=== PATIENT | female | born 1980 | race Caucasian/White ===

== ENCOUNTER 2021-04-04 11:30 | Inpatient (IN) ==
[2021-04-04] MEDS ORDERED: SODIUM CHLORIDE 0.9% 1,000 ML IV STA ×2 (13:11→15:27)
[2021-04-04] MEDS ORDERED: HYDROmorphone 2 MG/1 ML VIAL IV STA (13:31)
[2021-04-04] MEDS ORDERED: ONDANSETRON 4 MG/2 ML VIAL IV STA (13:31)
[2021-04-04 13:36] LABS: Basophils # 0.1 10*3/uL (0.0-0.2); Basophils % 0.4 % (0.0-0.8); Eosinophils % 0.2 % (0.00-10.9); Hematocrit 42.9 VOL% (35.7-47.0); Hemoglobin 14.4 GM/DL (12.0-16.0); Immature Granulocytes % 0.3 %; Immature Granulocytes Absolute 0.04 #; Lymphocytes # 0.8 10*3/uL (1.4-4.0); Lymphocytes % 6.1 % (21.3-54.2); Mean Corpuscular HGB Conc 33.6 GM/DL (32-36); Mean Corpuscular Volume 97.9 FL (87-102); Mean Platelet Volume 9.9 FL (9.6-12.0); Monocytes % 6.3 % (1.7-12.7); Neutrophils % 86.7 % (38.7-73.9); Platelet Count 285 T/CUMM (130-400); Red Blood Count 4.38 MC/CUMM (3.8-5.5); Red Cell Distribution Width 12.8 % (9.3-17.3)
[2021-04-04 13:53] LABS: Albumin 4.1 G/DL (3.4-5.0); Bilirubin,Total 0.8 MG/DL (0.2-1.0); Calcium 8.8 MG/DL (8.5-10.1); Potassium 3.4 MMOL/L (3.5-5.1); Total Protein 7.6 G/DL (6.4-8.2)
[2021-04-04] MEDS ORDERED: LEVOFLOXACIN INJ 500 MG/100 ML PREMIX IV STA (15:27)
[2021-04-04] MEDS ORDERED: GLUCAGON 1 MG VIAL IM PRN (15:54)
[2021-04-04] MEDS ORDERED: DEXTROSE 50% 25 GM/50 ML VIAL IV PRN (15:54)
[2021-04-04] MEDS: SODIUM CHLORIDE 0.9% 1,000 ML IV SCH (17:55)
[2021-04-04] MEDS: metroNIDAZOLE INJ 500 MG/100 ML PREMIX IV SCH ×2 (17:55→22:51)
[2021-04-04] MEDS: HYDROmorphone 2 MG/1 ML VIAL IV PRN ×2 (18:03→21:48)
[2021-04-05] MEDS: HYDROmorphone 2 MG/1 ML VIAL IV PRN (03:33)
[2021-04-05 05:21] LABS: Basophils % 0.2 % (0.0-0.8); Eosinophils # 0.1 10*3/uL (0.0-0.87); Eosinophils % 1.2 % (0.00-10.9); Hematocrit 38.3 VOL% (35.7-47.0); Hemoglobin 12.7 GM/DL (12.0-16.0); Immature Granulocytes % 0.6 %; Immature Granulocytes Absolute 0.06 #; Lymphocytes # 1.1 10*3/uL (1.4-4.0); Lymphocytes % 11.5 % (21.3-54.2); Mean Corpuscular HGB Conc 33.2 GM/DL (32-36); Mean Corpuscular Volume 99.7 FL (87-102); Mean Platelet Volume 10.1 FL (9.6-12.0); Monocytes % 7.5 % (1.7-12.7); Platelet Count 230 T/CUMM (130-400); Red Blood Count 3.84 MC/CUMM (3.8-5.5); Red Cell Distribution Width 12.9 % (9.3-17.3); White Blood Count 9.3 T/CUMM (4-12)
[2021-04-05 05:40] LABS: Albumin 3.3 G/DL (3.4-5.0); Bilirubin,Total 1.4 MG/DL (0.2-1.0); Calcium 7.5 MG/DL (8.5-10.1); Osmolality,Calculated 273.5 MOS/KG (273-304); Potassium 3.3 MMOL/L (3.5-5.1); Total Protein 6.1 G/DL (6.4-8.2)
[2021-04-05] MEDS: SODIUM CHLORIDE 0.9% 1,000 ML IV SCH ×2 (05:59→22:28)
[2021-04-05] MEDS: metroNIDAZOLE INJ 500 MG/100 ML PREMIX IV SCH ×4 (05:59→22:29)
[2021-04-05] MEDS ORDERED: POTASSIUM CHLORIDE 20 MEQ TABLET PO PRN (08:26)
[2021-04-05] MEDS ORDERED: NICOTINE 21 MG/24 HR PATCH TRANSDERM PRN (08:35)
[2021-04-05 09:11] LABS: PT Patient Result 11.1 SECS (10.5-12.0)
[2021-04-05] MEDS: MULTIVITAMIN (BEROCCA) TABLET PO SCH (09:33)
[2021-04-05] MEDS: LISDEXAMFETAMINE 50 MG PO SCH (09:33)
[2021-04-05] MEDS: chlordiazePOXIDE 10 MG CAPSULE PO SCH ×3 (09:33→20:23)
[2021-04-05] MEDS: FOLIC ACID 1 MG TABLET PO SCH (09:33)
[2021-04-05] MEDS: THIAMINE 100 MG TABLET PO SCH (09:33)
[2021-04-05 12:18] LABS: Hematocrit 35.9 VOL% (35.7-47.0)
[2021-04-05] MEDS: LEVOFLOXACIN INJ 500 MG/100 ML PREMIX IV SCH (16:15)
[2021-04-06] MEDS: metroNIDAZOLE INJ 500 MG/100 ML PREMIX IV SCH ×4 (05:14→23:20)
[2021-04-06 05:26] LABS: Basophils # 0.1 10*3/uL (0.0-0.2); Basophils % 0.8 % (0.0-0.8); Eosinophils # 0.3 10*3/uL (0.0-0.87); Eosinophils % 4.4 % (0.00-10.9); Hematocrit 33.1 VOL% (35.7-47.0); Hemoglobin 10.8 GM/DL (12.0-16.0); Immature Granulocytes % 0.3 %; Immature Granulocytes Absolute 0.02 #; Lymphocytes # 1.4 10*3/uL (1.4-4.0); Lymphocytes % 21.3 % (21.3-54.2); Mean Corpuscular HGB Conc 32.6 GM/DL (32-36); Mean Corpuscular Volume 100.9 FL (87-102); Monocytes % 6.4 % (1.7-12.7); Neutrophils % 66.8 % (38.7-73.9); Platelet Count 192 T/CUMM (130-400); Red Blood Count 3.28 MC/CUMM (3.8-5.5); Red Cell Distribution Width 12.8 % (9.3-17.3); White Blood Count 6.5 T/CUMM (4-12)
[2021-04-06 05:50] LABS: Calcium 7.3 MG/DL (8.5-10.1); Potassium 3.2 MMOL/L (3.5-5.1)
[2021-04-06] MEDS: POTASSIUM CHLORIDE 20 MEQ TABLET PO PRN ×3 (06:49→17:16)
[2021-04-06] MEDS: MULTIVITAMIN (BEROCCA) TABLET PO SCH (09:16)
[2021-04-06] MEDS: BISACODYL 5 MG TABLET PO SCH ×3 (09:16→23:21)
[2021-04-06] MEDS: FOLIC ACID 1 MG TABLET PO SCH (09:17)
[2021-04-06] MEDS: LISDEXAMFETAMINE 50 MG PO SCH (09:17)
[2021-04-06] MEDS: chlordiazePOXIDE 10 MG CAPSULE PO SCH ×3 (09:17→20:22)
[2021-04-06] MEDS: THIAMINE 100 MG TABLET PO SCH (09:17)
[2021-04-06] MEDS: ONDANSETRON 4 MG/2 ML VIAL IV PRN ×2 (11:32→20:24)
[2021-04-06] MEDS: SODIUM CHLORIDE 0.9% 1,000 ML IV SCH (13:09)
[2021-04-06] MEDS: LEVOFLOXACIN INJ 500 MG/100 ML PREMIX IV SCH (16:14)
[2021-04-06] MEDS ORDERED: POLYETHYLENE GLYCOL POWDER 255 GM BOTTLE PO ONE (18:00)
[2021-04-06] MEDS: POTASSIUM CHLORIDE RIDER 10 MEQ/100 ML PREMIX IV SCH (19:20)
[2021-04-06] MEDS ORDERED: MAGNESIUM CITRATE 300 ML BOTTLE PO ONE (21:00)
[2021-04-07] MEDS: SODIUM CHLORIDE 0.9% 1,000 ML IV SCH ×3 (02:24→13:00)
[2021-04-07 05:36] LABS: Basophils # 0.1 10*3/uL (0.0-0.2); Basophils % 0.6 % (0.0-0.8); Eosinophils # 0.4 10*3/uL (0.0-0.87); Eosinophils % 5.4 % (0.00-10.9); Hematocrit 36.2 VOL% (35.7-47.0); Hemoglobin 12.1 GM/DL (12.0-16.0); Immature Granulocytes % 0.3 %; Immature Granulocytes Absolute 0.02 #; Lymphocytes # 1.7 10*3/uL (1.4-4.0); Lymphocytes % 21.3 % (21.3-54.2); Mean Corpuscular HGB Conc 33.4 GM/DL (32-36); Mean Corpuscular Volume 99.2 FL (87-102); Mean Platelet Volume 9.8 FL (9.6-12.0); Monocytes % 5.9 % (1.7-12.7); Neutrophils % 66.5 % (38.7-73.9); Platelet Count 235 T/CUMM (130-400); Red Blood Count 3.65 MC/CUMM (3.8-5.5); Red Cell Distribution Width 12.8 % (9.3-17.3); White Blood Count 7.9 T/CUMM (4-12)
[2021-04-07] MEDS: metroNIDAZOLE INJ 500 MG/100 ML PREMIX IV SCH ×2 (05:56→11:22)
[2021-04-07 06:00] LABS: Calcium 8.2 MG/DL (8.5-10.1); Osmolality,Calculated 274.4 MOS/KG (273-304); Potassium 3.4 MMOL/L (3.5-5.1)
[2021-04-07] MEDS ORDERED: propofoL 200 MG/20 ML VIAL IV ONE (08:49)
[2021-04-07] MEDS ORDERED: LIDOCAINE 2% 5 ML VIAL ONE (08:49)
[2021-04-07] MEDS: LISDEXAMFETAMINE 50 MG PO SCH (10:26)
[2021-04-07] MEDS: FOLIC ACID 1 MG TABLET PO SCH (11:21)
[2021-04-07] MEDS: MULTIVITAMIN (BEROCCA) TABLET PO SCH (11:21)
[2021-04-07] MEDS: THIAMINE 100 MG TABLET PO SCH (11:22)
[2021-04-07] MEDS: chlordiazePOXIDE 10 MG CAPSULE PO SCH ×2 (11:22→15:13)
[2021-04-07 16:26] VITALS: BP 130/79
[2021-04-07] MEDS: LEVOFLOXACIN INJ 500 MG/100 ML PREMIX IV SCH (16:28)
== END 2021-04-07 16:32 | disposition home or self-care (01) | DRG 392 ==
LOC: N.EDINP 11:30 → N.ED 11:30 → SUATTDRO 15:54 → N.3E 16:45 → SUATTDRO 04-05 14:55
PROVIDERS: ADMIT Internal Medicine; ATTEND Emergency Medicine